=== PATIENT | male | born 1935 | race Caucasian/White ===

== ENCOUNTER 2019-04-10 13:32 | Emergency (ER) | payer MEDICARE, OTHER ==
[~2019-04-10] VITALS: Ht 180.3 cm; Wt 113.6 kg
[~2019-04-10 13:32] MED LIST: APIX5TAB3 PO; ASPI-611 PO; ATOR20TA PO; DILT240C90 PO; GLUC-131 PO; LACTC PO; LEVO750T46 PO; MULT-1074 PO
[2019-04-10] MEDS ORDERED: HYDR-4383 PO (14:58)
[2019-04-10] MEDS ORDERED: CELE-193 PO (14:58)
[2019-04-10 16:29] VITALS: BP 127/84
== END 2019-04-10 16:36 | disposition home or self-care (01) ==
LOC: ER 13:32
DX: S42.491A Other displaced fracture of lower end of right humerus, initial encounter for closed fracture (principal); I48.91 Unspecified atrial fibrillation; I25.10 Atherosclerotic heart disease of native coronary artery without angina pectoris; I10 Essential (primary) hypertension; Z98.890 Other specified postprocedural states; Z88.1 Allergy status to other antibiotic agents; Z79.82 Long term (current) use of aspirin; Z79.899 Other long term (current) drug therapy; W01.0XXA Fall on same level from slipping, tripping and stumbling without subsequent striking against object, initial encounter; Y93.01 Activity, walking, marching and hiking; Y92.89 Other specified places as the place of occurrence of the external cause; Y99.8 Other external cause status
CPT/HCPCS: 29105; 73080; 99283

== ENCOUNTER 2019-06-29 14:37 | Emergency (ER) | payer MEDICARE, OTHER ==
[~2019-06-29] VITALS: Ht 182.9 cm; Wt 111.4 kg
[~2019-06-29 14:37] MED LIST changes: +CELE-193 PO; +DILT-94 PO; -DILT240C90 PO; +HYDR-4383 PO; -LEVO750T46 PO; +LOSA1TAB36 PO
[2019-06-29] MEDS ORDERED: ceFAZolin 1gm IM kit IM ONE (15:45)
--- NOTE | 2019-06-29 16:27 | NUR ---
PT HAS HARDWARE FROM PREVIOUS SURGERY COMING OUT OF ELBOW INCISION
--- NOTE | 2019-06-29 18:43 | NUR ---
MILES AT BEDSIDE TO EVALUATE PATIENT.
[2019-06-29 18:44] VITALS: BP 148/84
[2019-06-29] MEDS ORDERED: CEPH250T PO (18:50)
--- NOTE | 2019-06-29 18:52 | NUR ---
PER MD MORILLO PT HAD PROTRUDING PINS REMOVED BY DOCTOR RADHAMES PT TO BE DISCHARGED AND INSTRUCTED TO FOLLOW-UP W/ HIS PRIMARY CARE PROVIDER NEXT WEEK.
== END 2019-06-29 19:01 | disposition home or self-care (01) ==
LOC: ER 14:38
DX: T81.89XA Other complications of procedures, not elsewhere classified, initial encounter (principal); G89.18 Other acute postprocedural pain; I48.91 Unspecified atrial fibrillation; I25.10 Atherosclerotic heart disease of native coronary artery without angina pectoris; I10 Essential (primary) hypertension; Z88.1 Allergy status to other antibiotic agents; Z79.82 Long term (current) use of aspirin; Z79.2 Long term (current) use of antibiotics; Z79.899 Other long term (current) drug therapy; Z98.890 Other specified postprocedural states; Y83.8 Other surgical procedures as the cause of abnormal reaction of the patient, or of later complication, without mention of misadventure at the time of the procedure; Y92.89 Other specified places as the place of occurrence of the external cause
CPT/HCPCS: 73080; 96372; 99284; J0690